=== PATIENT | male | born 1945 | race African-American/Black ===

== ENCOUNTER 2016-09-17 15:01 | Emergency (ER) | payer MEDICARE, MEDICAID ==
[~2016-09-17] VITALS: Ht 172.7 cm; Wt 74.8 kg
[~2016-09-17 15:01] MED LIST: BP MEDS; OXYC-128 PO
--- NOTE | 2016-09-17 15:10 | NUR ---
pt bibra from [facility] to er bed 11. here for milla mitchell. per report, pt is depressed after losing his partner. having suicidal ideation w/ plans of overdosing on meds. pt is aao, verbally responsive and cooperative to staff. awaiting md mitchell.
--- NOTE | 2016-09-17 15:20 | NUR ---
CALLED [facility] FOR TRANSPORT. ETA 45MINS
--- NOTE | 2016-09-17 16:25 | NUR ---
PT D/C IN STABLE CONDITION GOING TO [facility].
[2016-09-17 16:27] VITALS: BP 113/84
== END 2016-09-17 16:28 ==
LOC: ER 15:05
DX: F32.9 Major depressive disorder, single episode, unspecified (principal)
CPT/HCPCS: 99285; A4606; Z7610

== ENCOUNTER 2017-09-08 01:47 | Emergency (ER) | payer MEDICARE, OTHER ==
[~2017-09-08] VITALS: Ht 175.3 cm; Wt 83.9 kg
--- NOTE | 2017-09-08 01:47 | NUR ---
bb self; "i lost my , i feel depressed" NO PLAN FOR SI HI. WILL CONTINUE TO MONITOR FOR ANY CHANGES DURING THE SHIFT
[2017-09-08 02:28] LABS: BASOPHILS % (AUTO) 0.4 % (0.0-2.0); EOSINOPHILS % (AUTO) 1.4 % (0.0-6.0); HEMATOCRIT 40 % (39-51); HEMOGLOBIN 13.4 g/dL (13.5-17.5); LYMPHOCYTES # (AUTO) 1.7 /CMM (0.8-4.8); MEAN CORPUSCULAR HGB CONC 33 g/dl (31.0-36.0); MEAN CORPUSCULAR VOLUME 84 fL (80-96); MONOCYTES # (AUTO) 0.6 /CMM (0.1-1.30); MONOCYTES % (AUTO) 9.3 % (2.0-12.0); NEUTROPHILS % (AUTO) 61.9 % (43.0-81.0); PLATELET COUNT (AUTO) 155 /CMM (150-450); RDW COEFFICIENT OF VARIATION 15.1 (11.5-15.0); RED BLOOD CELL COUNT(AUTO) 4.76 MIL/uL (4.5-6.0); WHITE BLOOD COUNT (AUTO) 6.4 K/uL (4.3-11.0)
[2017-09-08 02:37] LABS: CALCIUM, SERUM 9.5 mg/dL (8.5-10.1); CARBON DIOXIDE 27 mmol/L (21-32); CHLORIDE 102 mmol/L (98-107); CREATININE 0.9 mg/dL (0.6-1.3); GLUCOSE 262 mg/dL (74-106); SODIUM SERUM 138 mmol/L (136-145); UREA NITROGEN, BLOOD 17 mg/dL (7-18)
[2017-09-08 02:43] LABS: ACETAMINOPHEN 0 ug/ml (10-30); ALANINE AMINOTRANSFERASE 103 U/L (12-78); ALBUMIN 3.6 g/dL (3.4-5.0); ALCOHOL, BLOOD < 3 mg/dL (0-0); ALKALINE PHOSPHATASE 78 U/L (46-116); ASPARTATE AMINOTRANSFERASE 62 U/L (15-37); BILIRUBIN,DIRECT 0.1 mg/dL (0.0-0.2); BILIRUBIN,TOTAL 0.4 mg/dL (0.2-1.0); TOTAL PROTEIN, SERUM 7.9 g/dL (6.4-8.2)
--- NOTE | 2017-09-08 03:00 | NUR ---
PT IS COMFORTABLE IN BED RESTING. ALL NEEDS MET
[2017-09-08 03:20] LABS: APPEARANCE,URINE CLEAR (CLEAR); BILIRUBIN,URINE NEGATIVE (NEGATIVE); BLOOD, URINE NEGATIVE Ery/uL (NEGATIVE); COLOR,URINE YELLOW (YELLOW); KETONES,URINE NEGATIVE (NEGATIVE); LEUKOCYTE ESTERASE ,URINE NEGATIVE (NEGATIVE); NITRITE, URINE NEGATIVE (NEGATIVE); PH,URINE 5.5 (5.0-8.0); PROTEIN,URINE NEGATIVE (NEGATIVE); UGLUCOSE 3+ mg/dL (NEGATIVE); UROBILINOGEN,URINE 0.2 EU/dL (0.2)
[2017-09-08 03:33] LABS: BACTERIA,URINE None seen /HPF (None Seen); MUCUS,URINE Few /LPF (None Seen); RBC,URINE 0-2 /HPF (0-2); SQUAMOUS EPITHELIAL CELL,UR Few /HPF (None Seen); WBC,URINE 0-2 /HPF (0-3)
--- NOTE | 2017-09-08 04:45 | NUR ---
PT STILL COMFORTABLE AND NEEDS MAINTAINED
--- NOTE | 2017-09-08 05:00 | NUR ---
INFORMATION FAXED TO [facility] AND [facility]. AWAITING RESPONSE
--- NOTE | 2017-09-08 06:15 | NUR ---
PT SLEEPING IN BED. BLANKETS OFFERED FOR COMFORT
--- NOTE | 2017-09-08 06:17 | NUR ---
PT NOW STATES "I HAVE A PLAN TO OVERDOSE" FOR SI PLAN
--- NOTE | 2017-09-08 08:10 | NUR ---
call received from lonnie snow,accepted by dr martel,report to [phone]
--- NOTE | 2017-09-08 08:28 | NUR ---
report given to aaron alcazar for jeffrey
--- NOTE | 2017-09-08 08:34 | NUR ---
ambulanz eta [id number]
[2017-09-08 09:10] VITALS: BP 145/84
== END 2017-09-08 09:10 | disposition home or self-care (01) ==
LOC: ER 01:51
DX: F31.9 Bipolar disorder, unspecified (principal); R45.851 Suicidal ideations; F41.9 Anxiety disorder, unspecified; E11.9 Type 2 diabetes mellitus without complications; I10 Essential (primary) hypertension; J44.9 Chronic obstructive pulmonary disease, unspecified; K21.9 Gastro-esophageal reflux disease without esophagitis; K85.90 Acute pancreatitis without necrosis or infection, unspecified; N40.0 Benign prostatic hyperplasia without lower urinary tract symptoms; F17.200 Nicotine dependence, unspecified, uncomplicated; Z88.2 Allergy status to sulfonamides; Z90.49 Acquired absence of other specified parts of digestive tract
CPT/HCPCS: 36415; 80048-TC; 80076-TC; 80305; 81000-TC; 82962-TC; 85025-TC; A4606; G0480; Z7610

== ENCOUNTER 2017-09-19 04:13 | Emergency (ER) | payer MEDICARE, OTHER ==
[~2017-09-19] VITALS: Ht 175.3 cm; Wt 82.1 kg
--- NOTE | 2017-09-19 04:40 | NUR ---
TO BED 10 AMBULATROY C/O SUICIDAL IDEATION WITH PLAN TO OD ON MEDS. PT AAOX4 NO ACUTE DISTRESS NOTED, RESP EVEN AND UNLABORED. PT CALM AND COOPERATIVE AT THIS TIME. WILL CONTINUE TO MONITOR PT CLOSELY.
--- NOTE | 2017-09-19 04:51 | NUR ---
COSMETICS SUPERVISOR AT BEDSIDE FOR BLOOD DRAW.
[2017-09-19 05:01] LABS: APPEARANCE,URINE CLEAR (CLEAR); BILIRUBIN,URINE NEGATIVE (NEGATIVE); BLOOD, URINE NEGATIVE Ery/uL (NEGATIVE); COLOR,URINE YELLOW (YELLOW); KETONES,URINE NEGATIVE (NEGATIVE); LEUKOCYTE ESTERASE ,URINE NEGATIVE (NEGATIVE); NITRITE, URINE NEGATIVE (NEGATIVE); PROTEIN,URINE NEGATIVE (NEGATIVE); UGLUCOSE NEGATIVE (NEGATIVE)
[2017-09-19 05:04] LABS: BASOPHILS % (AUTO) 0.5 % (0.0-2.0); HEMATOCRIT 38 % (39-51); HEMOGLOBIN 12.5 g/dL (13.5-17.5); LYMPHOCYTES # (AUTO) 1.8 /CMM (0.8-4.8); LYMPHOCYTES % (AUTO) 31.6 % (20.0-44.0); MEAN CORPUSCULAR HGB CONC 33 g/dl (31.0-36.0); MEAN CORPUSCULAR VOLUME 85 fL (80-96); MONOCYTES # (AUTO) 0.4 /CMM (0.1-1.30); MONOCYTES % (AUTO) 7.5 % (2.0-12.0); NEUTROPHILS # (AUTO) 3.3 /CMM (1.8-8.9); NEUTROPHILS % (AUTO) 58.4 % (43.0-81.0); PLATELET COUNT (AUTO) 138 /CMM (150-450); RDW COEFFICIENT OF VARIATION 15.3 (11.5-15.0); RED BLOOD CELL COUNT(AUTO) 4.46 MIL/uL (4.5-6.0); WHITE BLOOD COUNT (AUTO) 5.7 K/uL (4.3-11.0)
--- NOTE | 2017-09-19 05:06 | NUR ---
VIOLET TIAN AT BEDSIDE TALKING TO PT.
[2017-09-19 05:11] LABS: BACTERIA,URINE Few /HPF (None Seen); WBC,URINE 0-2 /HPF (0-3)
[2017-09-19 05:12] LABS: MUCUS,URINE Few /LPF (None Seen); SQUAMOUS EPITHELIAL CELL,UR Rare /HPF (None Seen)
[2017-09-19 05:14] LABS: CALCIUM, SERUM 9.1 mg/dL (8.5-10.1); CARBON DIOXIDE 27 mmol/L (21-32); CHLORIDE 104 mmol/L (98-107); CREATININE 0.9 mg/dL (0.6-1.3); GLUCOSE 161 mg/dL (74-106); POTASSIUM 4.3 mmol/L (3.5-5.1); SODIUM SERUM 139 mmol/L (136-145); UREA NITROGEN, BLOOD 18 mg/dL (7-18)
[2017-09-19 05:20] LABS: ALANINE AMINOTRANSFERASE 84 U/L (12-78); ALBUMIN 3.3 g/dL (3.4-5.0); ALCOHOL, BLOOD < 3 mg/dL (0-0); ALKALINE PHOSPHATASE 73 U/L (46-116); ASPARTATE AMINOTRANSFERASE 51 U/L (15-37); BILIRUBIN,DIRECT 0.2 mg/dL (0.0-0.2); BILIRUBIN,TOTAL 0.6 mg/dL (0.2-1.0); TOTAL PROTEIN, SERUM 7.4 g/dL (6.4-8.2)
[2017-09-19 05:22] LABS: ACETAMINOPHEN 0 ug/ml (10-30)
--- NOTE | 2017-09-19 05:30 | NUR ---
CALLED MAGDI MENSAH LCSW FOR PSYCH EVAL. "I WILL COME LATER IN THE MORNING".
--- NOTE | 2017-09-19 06:46 | NUR ---
PT RESTING WITH EYES CLOSED BUT AROUSABLE. AWARE OF PLAN OF CARE. DENIES ANY SX'S AT THIS TIME.
--- NOTE | 2017-09-19 08:54 | NUR ---
YESSI CALLED AND CONFIRMED THAT SHE RECEIVED THE CLINICALS
--- NOTE | 2017-09-19 10:05 | NUR ---
[facility] CALLED FOR TRANSPORT ETA 15 MINUTES
--- NOTE | 2017-09-19 10:45 | NUR ---
Patient discharged to [facility] in stable condition. Written and verbal after care instructions given. Patient verbalizes understanding of instruction.
[2017-09-19 11:17] VITALS: BP 146/78
== END 2017-09-19 10:45 ==
LOC: ER 04:13
DX: R45.851 Suicidal ideations (principal); D69.6 Thrombocytopenia, unspecified; R74.0 Nonspecific elevation of levels of transaminase and lactic acid dehydrogenase [LDH]; E11.9 Type 2 diabetes mellitus without complications; F41.9 Anxiety disorder, unspecified; I10 Essential (primary) hypertension; J44.9 Chronic obstructive pulmonary disease, unspecified; K21.9 Gastro-esophageal reflux disease without esophagitis; F31.9 Bipolar disorder, unspecified; K85.90 Acute pancreatitis without necrosis or infection, unspecified; F17.200 Nicotine dependence, unspecified, uncomplicated; N40.0 Benign prostatic hyperplasia without lower urinary tract symptoms; Z88.2 Allergy status to sulfonamides; Z90.49 Acquired absence of other specified parts of digestive tract
CPT/HCPCS: 36415; 80048; 80076; 80305; 80329; 81001; 85025; 99285; A4606; G0480 ×2; 81000-TC; Z7610

== ENCOUNTER 2017-12-28 21:58 | Emergency (ER) | payer MEDICARE, OTHER ==
[~2017-12-28] VITALS: Ht 177.8 cm; Wt 81.6 kg
[2017-12-28 21:59] VITALS: BP 122/83
[2017-12-28] MEDS ORDERED: CYCLOBENZAPRINE 10 MG TABLET PO ONE (22:30)
[2017-12-28] MEDS ORDERED: IBUPROFEN 400 MG TABLET PO ONE (22:30)
[2017-12-28] MEDS ORDERED: CYCLOBENZAPRINE 10 MG TABLET ONE (23:01)
[2017-12-28] MEDS ORDERED: IBUPROFEN 400 MG TABLET ONE (23:01)
== END 2017-12-28 23:42 | disposition home or self-care (01) ==
LOC: ER 22:00
DX: G89.29 Other chronic pain (principal); M54.9 Dorsalgia, unspecified; E11.40 Type 2 diabetes mellitus with diabetic neuropathy, unspecified; I10 Essential (primary) hypertension; J44.9 Chronic obstructive pulmonary disease, unspecified; K21.9 Gastro-esophageal reflux disease without esophagitis; N40.0 Benign prostatic hyperplasia without lower urinary tract symptoms; F31.9 Bipolar disorder, unspecified; G47.00 Insomnia, unspecified; F17.200 Nicotine dependence, unspecified, uncomplicated; Z90.49 Acquired absence of other specified parts of digestive tract; Z88.2 Allergy status to sulfonamides
CPT/HCPCS: 99283; A4606; Z7610

== ENCOUNTER 2017-12-29 02:55 | Emergency (ER) | payer MEDICARE, OTHER ==
[~2017-12-29] VITALS: Ht 177.8 cm; Wt 81.6 kg
--- NOTE | 2017-12-29 03:00 | NUR ---
71 YO MALE BIB SELF. PATIENT IS ALERT AND ORIENTED, STATES HE NEEDS MEDICAL CLEARANCE FOR [facility]. PATIENT SKIN WARM AND DRY, RESP EVEN AND UNLABORED. AWAITING ORDER FROM PROVIDER
[2017-12-29 03:28] LABS: BASOPHILS % (AUTO) 0.4 % (0.0-2.0); EOSINOPHILS % (AUTO) 3.1 % (0.0-6.0); HEMATOCRIT 46 % (39-51); HEMOGLOBIN 14.1 g/dL (13.5-17.5); LYMPHOCYTES # (AUTO) 1.4 /CMM (0.8-4.8); LYMPHOCYTES % (AUTO) 22.3 % (20.0-44.0); MEAN CORPUSCULAR HGB CONC 31 g/dl (31.0-36.0); MEAN CORPUSCULAR VOLUME 89 fL (80-96); MONOCYTES # (AUTO) 0.5 /CMM (0.1-1.30); MONOCYTES % (AUTO) 7.3 % (2.0-12.0); NEUTROPHILS # (AUTO) 4.3 /CMM (1.8-8.9); NEUTROPHILS % (AUTO) 66.9 % (43.0-81.0); PLATELET COUNT (AUTO) 155 /CMM (150-450); RDW COEFFICIENT OF VARIATION 16.6 (11.5-15.0); RED BLOOD CELL COUNT(AUTO) 5.14 MIL/uL (4.5-6.0); WHITE BLOOD COUNT (AUTO) 6.4 K/uL (4.3-11.0)
[2017-12-29 03:29] LABS: APPEARANCE,URINE CLEAR (CLEAR); BILIRUBIN,URINE NEGATIVE (NEGATIVE); BLOOD, URINE NEGATIVE Ery/uL (NEGATIVE); COLOR,URINE YELLOW (YELLOW); KETONES,URINE TRACE (NEGATIVE); LEUKOCYTE ESTERASE ,URINE NEGATIVE (NEGATIVE); NITRITE, URINE NEGATIVE (NEGATIVE); PH,URINE 5.5 (5.0-8.0); PROTEIN,URINE NEGATIVE (NEGATIVE); UGLUCOSE TRACE mg/dL (NEGATIVE); UROBILINOGEN,URINE 0.2 EU/dL (0.2)
[2017-12-29 03:44] LABS: ALANINE AMINOTRANSFERASE 106 U/L (12-78); ALBUMIN 3.3 g/dL (3.4-5.0); ALCOHOL, BLOOD < 3 mg/dL (0-0); ALKALINE PHOSPHATASE 74 U/L (46-116); ASPARTATE AMINOTRANSFERASE 70 U/L (15-37); BILIRUBIN,DIRECT 0.2 mg/dL (0.0-0.2); BILIRUBIN,TOTAL 0.4 mg/dL (0.2-1.0); CALCIUM, SERUM 9.2 mg/dL (8.5-10.1); CARBON DIOXIDE 27 mmol/L (21-32); CHLORIDE 103 mmol/L (98-107); CREATININE 1.3 mg/dL (0.6-1.3); GLUCOSE 206 mg/dL (74-106); POTASSIUM 4.4 mmol/L (3.5-5.1); SODIUM SERUM 140 mmol/L (136-145); TOTAL PROTEIN, SERUM 7.6 g/dL (6.4-8.2); UREA NITROGEN, BLOOD 25 mg/dL (7-18)
[2017-12-29 03:48] LABS: ACETAMINOPHEN < 2 ug/ml (10-30); SALICYLATE 0.6 mg/dL (2.8-20.0)
[2017-12-29 04:08] LABS: RBC,URINE 0-2 /HPF (0-2)
[2017-12-29 04:09] LABS: BACTERIA,URINE None seen /HPF (None Seen); HYALINE CASTS, URINE Moderate /LPF (None Seen); MUCUS,URINE Many /LPF (None Seen); SQUAMOUS EPITHELIAL CELL,UR Moderate /HPF (None Seen)
--- NOTE | 2017-12-29 04:16 | NUR ---
PATIENT IS RESTING IN ER BED, NO DISTRESS NOTED.
--- NOTE | 2017-12-29 05:16 | NUR ---
REPORT GIVEN TO EMT FOR TRANSPORT TO [facility]
--- NOTE | 2017-12-29 05:50 | NUR ---
PT ACCEPTED BY DR DUNCAN AT [facility]. [phone]
--- NOTE | 2017-12-29 05:54 | NUR ---
MAYCOL AT BEDSIDE FOR TRANSPORT TO [facility].
[2017-12-29 05:55] VITALS: BP 129/72
== END 2017-12-29 05:55 | disposition home or self-care (01) ==
LOC: ER 03:01
DX: Z04.6 Encounter for general psychiatric examination, requested by authority (principal); G89.29 Other chronic pain; M54.9 Dorsalgia, unspecified; I10 Essential (primary) hypertension; J44.9 Chronic obstructive pulmonary disease, unspecified; K21.9 Gastro-esophageal reflux disease without esophagitis; N40.0 Benign prostatic hyperplasia without lower urinary tract symptoms; E11.40 Type 2 diabetes mellitus with diabetic neuropathy, unspecified; F31.9 Bipolar disorder, unspecified; G47.00 Insomnia, unspecified; F17.200 Nicotine dependence, unspecified, uncomplicated; F14.10 Cocaine abuse, uncomplicated; Z90.49 Acquired absence of other specified parts of digestive tract; Z88.2 Allergy status to sulfonamides
CPT/HCPCS: 36415; 80048; 80076; 80305; 80329; 81001; 85025; 99284; A4606; G0480 ×2; 81000-TC; Z7610